=== PATIENT | male | born 1970 | race Two or more races ===

== ENCOUNTER 2020-04-28 16:02 | Emergency (ER) | payer SELFPAY ==
[~2020-04-28] VITALS: Ht 162.6 cm; Wt 95.5 kg
[2020-04-28 16:35] VITALS: BP 171/98
--- NOTE | 2020-04-28 18:03 | PHYS DOC ---
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 He states couple years ago he went to a doctor and was supposed to make an appointment to have it taken out and then he lost his benefits and never had it done. He is here today to get a referral so he can have the left knee lipoma taken out. He denies any pain at this time. He has full range of motion of the knee but is very bothersome when he bends the knee due to the lipoma. Review of Systems: Review of Systems: Constitutional: Denies fever or chills. [] Eyes: Denies change in visual acuity. [] HENT: Denies nasal congestion or sore throat. [] Respiratory: Denies cough or shortness of breath. [] Cardiovascular: Denies chest pain or edema. [] GI: Denies abdominal pain, nausea, vomiting, bloody stools or diarrhea. [] : Denies dysuria. [] Musculoskeletal: Denies back pain. Anterior left knee lipoma without joint pain. [] Integument: Denies rash. Left anterior knee lipoma [] Neurologic: Denies headache, focal weakness or sensory changes. [] Endocrine: Denies polyuria or polydipsia. [] Lymphatic: Denies swollen glands. [] Psychiatric: Denies depression or anxiety. [] Heart Score: Risk Factors: Risk Factors: DM, Current or recent (<one month) smoker, HTN, HLP, family history of CAD, obesity. Risk Scores: Score 0 - 3: 2.5% MACE over next 6 weeks - Discharge Home Score 4 - 6: 20.3% MACE over next 6 weeks - Admit for Clinical Observation Score 7 - 10: 72.7% MACE over next 6 weeks - Early Invasive Strategies Physical Exam: PE: Constitutional: Well developed, well nourished, no acute distress, non-toxic appearance. [] HENT: Normocephalic, atraumatic, bilateral external ears normal, oropharynx moist, no oral exudates, nose normal. [] Eyes: PERRLA, EOMI, conjunctiva normal, no discharge. [] Neck: Normal range of motion, no tenderness, supple, no stridor. [] Cardiovascular:Heart rate regular rhythm, no murmur [] Lungs & Thorax: Bilateral breath sounds clear to auscultation [] Abdomen: Bowel sounds normal, soft, no tenderness, no masses, no pulsatile masses. [] Skin: Warm, dry, no erythema, no rash. Left anterior knee lipoma that is egg sized, skin colored and nontender. [] Back: No tenderness, no CVA tenderness. [] Extremities: No tenderness, no cyanosis, no clubbing, ROM intact, no edema. [] Neurologic: Alert and oriented X 3, normal motor function, normal sensory fun ction, no focal deficits noted. [] Psychologic: Affect normal, judgement normal, mood normal. [] Current Patient Data: Vital Signs: Vital Signs Date Time Temp Pulse Resp B/P (MAP) Pulse Ox O2 Delivery O2 Flow Rate FiO2 04/28/20 16:35 98.8 70 14 171/98 (122) 95 Room Air 98.8 EKG: EKG: [] Radiology/Procedures: Radiology/Procedures: [] Course & Med Decision Making: Course & Med Decision Making Pertinent Labs and Imaging studies reviewed. (See chart for details) See HPI. Patient has an egg sized soft lipoma to the anterior knee. Skin colored. There is no tenderness. Patient has full range of motion of the knee. No redness or signs of infection or cellulitis. No drainage. No signs of infection. I will refer the patient to a surgeon for removal. Can pink warm and dry. Popliteal pulses strong and present. [] Dragon Disclaimer: [place] Disclaimer: This electronic medical record was generated, in whole or in part, using a voice recognition dictation system. Departure Departure Impression: Primary Impression: Lipoma Qualified Codes: D17.9 - Benign lipomatous neoplasm, unspecified Disposition: 01 HOME, SELF-CARE Condition: STABLE Referrals: NO PCP (PCP) CORY RUIZ MD Patient Instructions: Lipoma-Brief Additional Instructions: Follow-up with surgeon as soon as possible. Justicifation of Admission Dx: Justifications for Admission: Justification of Admission Dx: N/A RONNY PEARL ORDER TRACER Apr 28, 2020 18:03
== END 2020-04-28 18:43 | disposition home or self-care (01) ==
LOC: ER 16:02
DX: D17.24 Benign lipomatous neoplasm of skin and subcutaneous tissue of left leg (principal); I10 Essential (primary) hypertension
CPT/HCPCS: 99281